=== PATIENT | female | born 1975 | race Native Hawaiian/Other Pacific Islander ===

== ENCOUNTER 2018-04-28 18:00 | Emergency (ER) | payer BC ==
--- NOTE | 2018-04-28 19:09 | OBHP ---
Datetime: 04/28/2018 18:23 IP Adm Impression: Term, intrauterine IP Admit Plan: Observation/Evaluation Admit Comment, IP Provider: 42yo IUP at 39wK based on LMP of 07/29/17 presents to [facility] for suspe cted ROM that started at 4pm. Pt endorses good movement. Denies contractions and vaginal bleedi ng. ROS: negative except for stated above in HPI ObHx: Dr. Chaney, Last appointment was 04/13/18 PMH: denies PSH: denies Allergies: N.K.D.A. PSoH denies smoking ETOH drugs Labs: HIV: negative; GBS: negative; Rubella: immune; Gc/CL: negative; RPR: non-reactive; HbsAg: ne gative; ABO: O+; Antibody: negative Physical: Vital signs are stable. Heart : s1 and S2 appreciated on exam. Lungs: clear bilaterally Abdomen: Gravid, non-tender; +bs Extremities: No lower extremity edema. SVE: Negative pooling, negative nitrazine test. Closed. A: 42 yo with IUP at 39 wks presents for suspected ROM. - NST-not as reactive at this time, patient to be given some juice - Continue to monitor EFM and [place] -Negative nitrazine and pooling. Closed on exam. - ED precautions and labor precautions given - Next appt with Dr. Chaney- Next . Discussed with Dr. Jayce Zeng, PGY1 Addendum by Dr. Eduardo: I have evaluated the patient independently and I agree with the above Pelvic Type - PN: Adequate Extremities - PN: Normal Abdomen - PN: Normal Back - PN: Normal Breast - PN: Not Done Lungs - PN: Normal Heart - PN: Normal Thyroid - PN: Normal Neurologic - PN: Normal HEENT - PN: Normal General - PN: Normal FHR - Baseline A Provider: 145 Pool Provider: Negative Nitrazine Provider: Negative EGA AdmitDate IP: 39.0 Vital Signs Provider: Reviewed; Within Normal Limits IP Chief Complaint: Suspected ruptured membranes NICHD Variability Prov Fetus A: Minimal - Undetectable to <5bpm FHR Category Provider Fetus A: Category I NICHD Decel Fetus A IP Provider: None Dilatation, Provider: closed Genitourinary Exam: Normal DTRs - PN: Normal
--- NOTE | 2018-04-28 19:09 | OBDCSUM ---
Datetime: 04/28/2018 18:56 Discharged to, Provider: Home Follow up at, Provider: Dr Chaney Disch Instr Activity: Normal activity Disch Instr Diet: Regular Discharge Instructions, Provider: Routine instructions given Discharge Time: 04/28/2018 19:03 Follow up in weeks, Provider: Next Scheduled appointment Disch Referrals: None Contraception discussed, Prov: Yes Discharge Diagnosis Prov Other: encouter for suspected ROM, not found
[2018-04-28 23:24] VITALS: BP 129/77; PULSE 85; O2SAT 100
== END 2018-04-28 19:05 | disposition home or self-care (01) ==
LOC: H.EROB2 18:00
DX: O34.63 Maternal care for abnormality of vagina, third trimester (principal); N89.8 Other specified noninflammatory disorders of vagina; Z3A.39 39 weeks gestation of pregnancy; O47.1 False labor at or after 37 completed weeks of gestation

== ENCOUNTER 2018-05-08 20:32 | Inpatient (IN) | payer BC ==
[~2018-05-08 20:32] MED LIST: Lidocaine 1% PF (5ml) Amp INJ ONE
[2018-05-08 20:41] VITALS: BMI 27.9
--- NOTE | 2018-05-08 21:16 | OBADHP ---
Datetime: 05/08/2018 20:29 Admit Comment, IP Provider: PNP: Dr. Chaney 42 y/o @ 40.3 wks, LMP:07/29/2017, AMADEO: 05/05/2018 is presenting for induction of labor. Patient endorses +FM, denies ctx, vb or loss of fluid. Denies fever, chills, headaches, lightheadedness, na usea, vomiting, chest pain or shortness of breath. OBGYNhx: + chlamydia 09/12/2017, FRANCISCO for chlamydia- negative 11/10/2017; AMA PMH: denies All: denies Meds: PNV Surghx: denies Famhx: Father-DM, HTN Mother- HTN; uterine cancer Sochx: denies ROS: all 12 points reviewed and neg unless othwerwise mentioned in HPI PE: Gen: female sitting upright, breathing comfortably Cardio: s1s2, no murmurs Lungs: cta b/l Abd: gravid, nontender, no guarding, no rigidity Ext: calves nontender, nonedematous A/P: 42 y/o @ 40.3 wks, clinically stable, is presenting for induction of labor. -Initiate induction of labor protocol -Continue FHR monitoring -Monitor VS Patient seen and eval with Dr. Eduardo -Tory Bradshaw, PGY-[address] Eduardo: I have evaluated the patient independently and I agree with the above Extremities - PN: Normal Abdomen - PN: Normal Back - PN: Normal Lungs - PN: Normal Heart - PN: Normal General - PN: Normal IP Hx Assessment: The History has been Reviewed and is Current IP Chief Complaint: Scheduled induction of labor EGA AdmitDate IP: 40.3 IP Adm Impression: Term, intrauterine IP Admit Plan: Admit to unit; Initiate labor induction protocol Datetime: 04/28/2018 18:23 Pelvic Type - PN: Adequate Breast - PN: Not Done Thyroid - PN: Normal Neurologic - PN: Normal HEENT - PN: Normal FHR - Baseline A Provider: 145 Pool Provider: Negative Nitrazine Provider: Negative Vital Signs Provider: Reviewed; Within Normal Limits NICHD Variability Prov Fetus A: Minimal - Undetectable to <5bpm FHR Category Provider Fetus A: Category I NICHD Decel Fetus A IP Provider: None Dilatation, Provider: closed Genitourinary Exam: Normal DTRs - PN: Normal
[2018-05-08 21:46] LABS: BASO % 0.4 % (0.0-2.0); EOS % 0.6 % (0.0-4.0); HEMOGLOBIN 11.8 g/dL (12.0-16.0); LYMPH # 1.6 K/uL (1.0-4.3); LYMPH % 23.7 % (20.0-40.0); MEAN CELL VOLUME 92.2 fl (81.0-99.0); MEAN CORPUSCULAR HEMOGLOBIN 30.7 pg (27.0-31.0); MEAN CORPUSCULAR HGB CONC 33.3 g/dL (33.0-37.0); MONO # 0.6 K/uL (0.0-0.8); MONO % 9.8 % (0.0-10.0); NEUT # 4.3 K/uL (1.8-7.0); NEUT % 65.5 % (50.0-75.0); RBC 3.84 Mil/uL (3.80-5.20); RED CELL DISTRIBUTION WIDTH 13.6 % (11.5-14.5); WHITE BLOOD COUNT 6.6 K/uL (4.8-10.8)
[2018-05-09] MEDS ORDERED: Oxytocin 30 UNIT 30 UNITS/500 ML BAG IV ONE ×3 (10:38→15:05)
--- NOTE | 2018-05-09 11:49 | OBPN ---
Datetime: 05/09/2018 10:15 IP Progress Impression: Reassuring heart rate IP Informed Consent Obtain: Vaginal Delivery; Risks, Benefits and Alternatives Discussed IP Progress Plan: Induction; Cervical Ripening; Anticipate Vaginal Delivery Pool Provider: Negative Membranes, Provider: Intact Contraction Comments Provider: 1-2m FHR - Baseline A Provider: 140 Presentation-Admit: Vertex IP Progress Note Comment: She feels occ CTX. She was admitted for IOL last night - cervidil placed a t 10:00pm. A; 40+w AMA Hx Chl treated PLAN: Discussion about IOL, medication, labor, delivery, risks/complications, care...sh e agrees with starting Cytotec to continue IOL (once CTX spread out). NICHD Accel Fetus A IP Provider: 15X15 FHR Category Provider Fetus A: Category I NICHD Variability Prov Fetus A: Moderate 6-25bpm Dilatation, Provider: FT Effacement, Provider: long Station, Provider: high NICHD Decel Fetus A IP Provider: None Datetime: 04/28/2018 18:23 Nitrazine Provider: Negative Vital Signs Provider: Reviewed; Within Normal Limits
[2018-05-09] MEDS: Lactated Ringer's 1,000 ML IV SCH ×4 (12:30→21:00)
[2018-05-09] MEDS ORDERED: Fentanyl/Bupivacaine HCl 250 ML EPI ONE (13:38)
[2018-05-09] MEDS ORDERED: Bupivacaine HCl 0.5% PF (30 ml) Inj ONE ×2 (13:50→23:58)
--- NOTE | 2018-05-09 14:37 | OBPN ---
Datetime: 05/09/2018 14:30 IP Progress Impression: Normal progression of labor; Reassuring heart rate IP Informed Consent Obtain: Vaginal Delivery; Risks, Benefits and Alternatives Discussed IP Progress Plan: Induction; Anticipate Vaginal Delivery Pool Provider: Positive Membranes, Provider: Ruptured Contraction Comments Provider: 2-4m FHR - Baseline A Provider: 135 Presentation-Admit: Vertex IP Progress Note Comment: She rec'd epidural and feels much better. She was checked earlier (prior to epi) and noted to be 3cm. She went to the bathroom 1h ago and noted that she had leaking form vag leticia A: Latent phase of labor PLAN: Discussion with pt...will start Pitocin augmentation NICHD Accel Fetus A IP Provider: 15X15 FHR Category Provider Fetus A: Category I NICHD Variability Prov Fetus A: Moderate 6-25bpm Dilatation, Provider: 3-4 Effacement, Provider: 75 Station, Provider: -1 NICHD Decel Fetus A IP Provider: None
--- NOTE | 2018-05-09 18:07 | OBPN ---
Datetime: 05/09/2018 18:00 IP Progress Impression: Normal progression of labor; Reassuring heart rate IP Informed Consent Obtain: Vaginal Delivery IP Progress Plan: Continue present management; Induction; Anticipate Vaginal Delivery Pool Provider: Positive Membranes, Provider: Ruptured Contraction Comments Provider: 2-4m FHR - Baseline A Provider: 135 Presentation-Admit: Vertex IP Progress Note Comment: She feels comfortable. She was 8cm at 5pm. SVE 9cm 100% 0 station A: active phase of labor PLAN: Pitoicn at 5miu/h Anticiapte NICHD Accel Fetus A IP Provider: 15X15 FHR Category Provider Fetus A: Category I NICHD Variability Prov Fetus A: Moderate 6-25bpm Dilatation, Provider: 9 Effacement, Provider: 100 Station, Provider: 0 NICHD Decel Fetus A IP Provider: None
--- NOTE | 2018-05-09 19:40 | OBPN ---
Datetime: 05/09/2018 19:35 IP Progress Impression Other: Second stage o f IP Progress Impression: Normal progression of labor; Reassuring heart rate IP Progress Plan: Continue present management; Anticipate Vaginal Delivery Membranes, Provider: Ruptured Amniotic Fluid Color, Provider: Clear Contraction Comments Provider: 2-3m IP Progress Note Comment: Second stage of labor PLAN anticiapte FHR Category Provider Fetus A: Category I Dilatation, Provider: 10 Effacement, Provider: 100 Station, Provider: 0
[2018-05-09] MEDS ORDERED: Morphine 1 mg/ml preservative-free Inj(Duramorph) ONE (23:58)
--- NOTE | 2018-05-10 00:05 | OBPN ---
Datetime: 05/10/2018 00:00 IP Progress Impression: Arrest of dilatation/descent IP Informed Consent Obtain: Section Delivery; Risks, Benefits and Alternatives Discussed IP Progress Plan: Deliver- Section Contraction Comments Provider: 2-3m FHR - Baseline A Provider: 170 Presentation-Admit: Vertex IP Progress Note Comment: She has been pushign since 8:30pm. Jessie noted Failure of descent PLAN: discussion with pt about condition, procedure - C/S, with its risks/complications ... her qu estions answered. Informed consent obtained NICHD Accel Fetus A IP Provider: 10X10 FHR Category Provider Fetus A: Category II NICHD Variability Prov Fetus A: Moderate 6-25bpm Dilatation, Provider: 10 Effacement, Provider: 100 Station, Provider: 0 NICHD Decel Fetus A IP Provider: Variable
[2018-05-10] MEDS ORDERED: ceFAZolin 2 GM in Sodium Chloride 0.9% 100 ML IVPB ONE (00:30)
[2018-05-10] MEDS ORDERED: Oxycodone/Acetaminophen 5/325 mg Tab PO PRN ×4 (01:14→03:28)
[2018-05-10] MEDS: OXYTOCIN/0.9 % NS 20 UNIT/1,000 ML BAG IV SCH ×3 (01:15→18:29)
--- NOTE | 2018-05-10 07:58 | OBDS ---
DELIVERY PERSONNEL Delivery Doctor: Ar Chaney DO Iron Assorter: Juli Hassan RN Anesthesiologist: Dr. Hudson MATERNAL INFORMATION Delivery Anesthesia: Epidural Medications in Delivery: Pitocin, Methergine (Annotations: Data stored by [facility] on behalf of user) Estimated Blood Loss (ml): 800 Placenta Cultured: No Maternal Complications: Prolonged Second Stage > 2 Hrs Provider Comments: Pre Op Dx: Failure of descent Post Op Dx same Procedure: Primary LTCS via Pfannenstiel incisoin Surgeon Dr Chaney Asst Dr Villafana Anesth: Dr Hudson Anest - epidural Findings: -live female delivered from cephaloic presentation - crying spontaneously - 9,9 -Boggy uterus noted - given Pitocin and Methergine 0.2mg IM one dose -Ovaries and tubes WNL -All equipment sponges and needles accounted for -EBL 800cc She remained stable LABOR SUMMARY EDC: 05/05/2018 00:00 No. Babies in Womb: 1 Attempted: No Labor Anesthesia: Epidural LABOR INFORMATION Reason for Induction: Postterm Onset of Labor: 05/09/2018 14:00 Complete Dilatation: 05/09/2018 19:30 Cervical Ripening Agents: Cytotec @ 25mcg Oxytocin: Augmentation Group B Beta Strep: Negative Steroids Given: None Reason Steroids Not Administered: Not Applicable MEMBRANES Membranes Rupture Method: Spontaneous Rupture of Membranes: 05/09/2018 13:20 Length of Rupture (hrs): 11.38 Amniotic Fluid Color: Clear Amniotic Fluid Amount: Small Amniotic Fluid Odor: Normal STAGES OF LABOR Stage 1 hrs: 5 Stage 1 min: 30 Stage 2 hrs: 5 Stage 2 min: 13 Stage 3 hrs: 0 Stage 3 min: 1 Total Time in Labor hrs: 10 Total Time in Labor min: 44 CSECTION DELIVERY Primary Indication: Failure of Descent CSection Urgency: Non Elective CSection Incidence: Primary Labor: Labor Elective: Nonelective CSection Incision: Lower Uterine Transverse Uterine Closure: Double-layer closure BABY A INFORMATION Infant Delivery Date/Time: 05/10/2018 00:43 Method of Delivery: Born in Route : No : N/A Forceps: N/A Vacuum Extraction: N/A Shoulder Dystocia : No SHOULDER DYSTOCIA BABY A Delivery Date/Time: 05/10/2018 00:43 PRESENTATION/POSITION BABY A Presentation: Cephalic Breech Presentation: N/A PLACENTA INFORMATION BABY A Placenta Delivery Time : 05/10/2018 00:44 Placenta Method of Delivery: Expressed Placenta Status: Delivered SCORES BABY A Heart Rate 1 min: >100 bpm Resp Effort 1 min: Good Cry Reflex Irritability 1 min: Cough or Sneeze or Pulls Away Muscle Tone 1 min: Active Motion Color 1 min: Body [place], Extremities Blue Resuscitation Effort 1 min: Tactile Stimulation SCORE 1 MIN: 9 Heart Rate 5 min: >100 bpm Resp Effort 5 min: Good Cry Reflex Irritability 5 min: Cough or Sneeze or Pulls Away Muscle Tone 5 min: Active Motion Color 5 min: Body [place], Extremities Blue Resuscitation Effort 5 min: N/A SCORE 5 MIN: 9 INFORMATION BABY A Gestational Age at Delivery: 40.5 Gestational Status: Post-term Infant Outcome : Liveborn Infant Condition : Stable Infant Sex: Female IDENTIFICATION/MEDS BABY A ID Band Number: [id number] ID Band Location: Left Leg; Left Arm WEIGHT/LENGTH BABY A Infant Birthweight (gms): 3770 Infant Weight (lb): 8 Infant Weight (oz): 5 CORD INFORMATION BABY A No. Cord Vessels: 3 Nuchal Cord : N/A Cord Blood Taken: Yes Suction: Mouth; Nose ASSESSMENT BABY A Infant Complications: Multiple Late Decels; Multiple Variable Decels Physical Findings at Delivery: Caput Succedaneum Respirations: Appears Normal Cookie Mixer Helper/ALS Called : No Care By: Dr Gaye Day Transferred To: Remains with Mother
[2018-05-10] MEDS: Multivitamin With Minerals Tab PO SCH (08:36)
[2018-05-10] MEDS ORDERED: Multivitamin With Minerals Tab PO SCH (09:00)
--- NOTE | 2018-05-10 09:00 | OBPN ---
Datetime: 05/09/2018 19:35 IP Progress Impression Other: Second stage of labor
[2018-05-10 12:42] LABS: BASO % 0.2 % (0.0-2.0); EOS % 0.1 % (0.0-4.0); LYMPH # 1.4 K/uL (1.0-4.3); LYMPH % 8.7 % (20.0-40.0); MEAN CORPUSCULAR HEMOGLOBIN 30.8 pg (27.0-31.0); MEAN CORPUSCULAR HGB CONC 33.5 g/dL (33.0-37.0); MEAN PLATELET VOLUME 7.8 fl (7.2-11.7); MONO # 0.9 K/uL (0.0-0.8); MONO % 5.5 % (0.0-10.0); NEUT % 85.5 % (50.0-75.0); PLATELET COUNT 144 K/uL (130-400); RBC 3.14 Mil/uL (3.80-5.20); RED CELL DISTRIBUTION WIDTH 13.7 % (11.5-14.5); WHITE BLOOD COUNT 16.4 K/uL (4.8-10.8)
[2018-05-10 12:44] LABS: HEMOGLOBIN 9.7 g/dL (12.0-16.0)
[2018-05-10 15:01] LABS: BANDS 3 % (0-2); LYMPHOCYTE 7 % (20-50); MONOCYTE 2 % (0-10); NEUTROPHIL 88 % (42-75); TOTAL CELLS COUNTED 100
[2018-05-10 15:02] LABS: PLATELET ESTIMATE NORMAL (NORMAL)
[2018-05-10 15:03] LABS: HYPOCHROMIC SLIGHT; PLATELET CLUMPS PRESENT
--- NOTE | 2018-05-11 08:33 | OP ---
PROCEDURE DATE: 05/10/2018 PREOPERATIVE DIAGNOSIS: Failure of descent. POSTOPERATIVE DIAGNOSIS: Failure of descent. PROCEDURE: Primary low transverse section via Pfannenstiel incision. SURGEON: Ruben Chaney DO CANDY VENDOR: Eshan Villafana MD (Dr. Ehsan Villafana is a board certified MEDICAL CODING INSTRUCTOR physician who was available for this case. His presence was vital and necessary for the procedure. There was no surgical assist available. He was present for the surgery from the time of skin incision to the delivery of the to the closure of the skin). ANESTHESIOLOGIST: Dr. Hudson. ANESTHESIA: Epidural. OPERATIVE FINDINGS: Live female infant, delivered from the cephalic presentation. was crying spontaneously. scores of 9 and 8 given at 1 and 5 minutes respectively. The uterus noted to be boggy. She was given IV Pitocin and Methergine 0.2 mg one dose. Ovaries and tubes appeared to be within normal limits grossly. All equipments, sponges, and needles accounted for. ESTIMATED BLOOD LOSS: 800 mL. DESCRIPTION OF PROCEDURE: She remained hemodynamically stable throughout procedure. The patient was brought to the operating room. She had an epidural catheter already in place. She was placed in a supine position. Compression boots were placed on both lower extremities. The catheter was placed in the bladder and was draining clear urine. She was then draped and prepped in usual sterile manner. Once adequate anesthesia was confirmed, Pfannenstiel incision was made using a scalpel. This incision was then taken down to underlying fascia using electrocautery. Fascia was nicked in the midline and extended bilaterally using electrocautery. Inferior aspect of the fascia was grasped using two Yumiko clamps, tented up, and the rectus muscle was both bluntly and sharply dissected using electrocautery. The same was done in the superior aspect of the fascia. In the midline superiorly, the rectus muscle was bluntly and to the peritoneum bluntly. This incision was then extended superiorly and inferiorly with direct visualization of the bladder and intestines. Bladder blade was then inserted. We were able to identify the bladder. Two lap pads were placed on the paracolic gutters. Incision was made above the bladder line on the uterus using Metzenbaum scissors. Incision was then extended bilaterally using Metzenbaum scissors. Bladder flap was created digitally. Bladder blade was then inserted behind the bladder flap. A lower transverse incision was made using a scalpel upon entering the uterus. Clear amniotic fluid was noted. Incision was then extended bilaterally using bandage scissors. The 's head was delivered as atraumatically as possible with bulb suctioned nasopharyngeally. The remainder of the infant then was delivered as atraumatically as possible. Cord was clamped and cut. Infant was handed to the chief operating officer in attendance. Cord bloods were obtained. Placenta was delivered intact spontaneously. Uterus was then exteriorized and cleared of debris and clots. Some bogginess was noted on the uterus, IV Pitocin given. Blood pressure was noted to be 130s over 70s. Decision was made to give Methergine 0.2 mg IM one dose. Good contracture of the uterus noted thereafter. A 0 Vicryl suture was used to close the first layer of the uterus in an interlocking fashion. Second layer of the uterus was closed using 0 Vicryl suture imbricating the first layer. Good hemostasis was assured. Ovaries and tubes appeared to be within normal limits grossly. Posterior cul-de-sac was clear of debris and clots. Irrigation was performed. The uterus was placed back into the peritoneal cavity. The lower uterine segment was noted to have good hemostasis. All equipments were removed and accounted for. An 0 Vicryl suture was used to approximate the peritoneum in a running fashion. Rectus muscle was noted to have good hemostasis and was approximated with 0 Vicryl suture x3. An 0 Vicryl suture was used to approximate that fascial layer in a running fashion. Irrigation was performed. Electrocautery was used to facilitate hemostasis. A 3-0 Vicryl suture was used to approximate the skin. Dermabond, Steri-Strips, and pressure bandages were applied. She tolerated the procedure well and was transferred to the recovery room in stable condition. All equipments, sponges, and needles accounted for. Ruben Chaney DO
[2018-05-11] MEDS: Multivitamin With Minerals Tab PO SCH (11:10)
--- NOTE | 2018-05-12 07:38 | OBPPN ---
Datetime: 05/12/2018 07:32 PP Pain Prov: Within normal limits PP Nausea Prov: Denies PP Flatus Prov: Yes PP BM Prov: No PP Abdomen/Uterus Prov: Normal PP Lochia Prov: Normal PP C/S Incision Prov: Normal PP Progress Prov: Normal PP Impression Prov: Normal progression PP Plan Prov: Continue present management PP Progress Note Prov: POD 2 s/p primary cesaren section for failure of descent Continue current management Vital Signs Provider PP: Reviewed
[2018-05-12] MEDS: Multivitamin With Minerals Tab PO SCH (09:03)
[2018-05-13] MEDS: Multivitamin With Minerals Tab PO SCH (08:49)
--- NOTE | 2018-05-13 11:04 | OBDCSUM ---
Datetime: 05/13/2018 10:59 Discharged to, Provider: Home Follow up at, Provider: ob Disch Instr Activity: Normal activity Disch Instr Diet: Regular Discharge Instructions, Provider: Routine instructions given Discharge Diagnosis, Provider: Term Delivered Discharge Time: 05/13/2018 11:00 Follow up in weeks, Provider: 1 wk, 6 wks Disch Referrals: None Contraception discussed, Prov: Yes
--- NOTE | 2018-05-13 11:04 | OBPPN ---
Datetime: 05/13/2018 10:58 PP Pain Prov: Within normal limits PP Nausea Prov: Denies PP Flatus Prov: Yes PP Breasts Prov: Normal PP Heart Prov: Normal PP Lungs Prov: Normal PP Abdomen/Uterus Prov: Normal PP Lochia Prov: Normal PP Vulva/Perineum Prov: Normal PP CVA Tenderness Prov: Normal PP Extremities Prov: Normal PP Comments Phys Exam Prov: Fundus firm under umbilicus Incision clean/dry/intact PP Impression Prov: Normal progression PP Plan Prov: Continue present management PP Progress Note Prov: Patient denies CP, no SOB, no N/V, tolerating PO diet, ambulating/voiding wel l, mild lochia, abdominal pain tolerable with meds A/P POD #3 1. discharge pt home 2. Discharge instructions reviewed IP PP Procedures: None Vital Signs Provider PP: Reviewed; Within Normal Limits
[2018-05-13 19:27] VITALS: BP 110/60; PULSE 78; RESP 20; TEMP 98; O2SAT 95
== END 2018-05-13 14:55 | disposition home or self-care (01) | DRG 788 ==
LOC: H.L&D 20:50 → H.OB/GYN 05-10 04:00
PROVIDERS: ADMIT Obstetrics & Gynecology; ATTEND Obstetrics & Gynecology
PROC: 4A1HXCZ Monitoring of Products of Conception, Cardiac Rate, External Approach (ICD-10-PCS; 2018-05-08)
PROC: 10D00Z1 Extraction of Products of Conception, Low, Open Approach (ICD-10-PCS; principal; 2018-05-10)
DX: O76 Abnormality in fetal heart rate and rhythm complicating labor and delivery (principal); O62.0 Primary inadequate contractions; Z3A.40 40 weeks gestation of pregnancy; Z37.0 Single live birth; O63.1 Prolonged second stage (of labor); O32.4XX0 Maternal care for high head at term, not applicable or unspecified; Z83.3 Family history of diabetes mellitus; Z82.49 Family history of ischemic heart disease and other diseases of the circulatory system; Z80.49 Family history of malignant neoplasm of other genital organs